=== PATIENT | female | born 1945 | race African-American/Black ===

== ENCOUNTER → 2016-10-09 | Outpatient (CLI) | payer MEDICARE, OTHER ==
[~2016-10-09] MED LIST: BENICAR; CALC-649; COUGH SYRUP; D-ME473S2; MULT1TAB59; NAPR-260 PO; VERA240C10
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
--- NOTE | 2016-10-09 17:44 | RADRPT ---
PROCEDURE: XR Lumbar Spine. CLINICAL INDICATION: Back pain. TECHNIQUE: Three views. AP, lateral and cone-down lateral view of the lumbar spine were obtained. COMPARISON: 02/11/2016. FINDINGS: There is normal stature and alignment of the vertebrae. There is no fracture. There is no lytic or blastic lesion. There are degenerative changes with disk space narrowing and osteophytes at L4-5 and L5-S1. There i s hypertrophy of the facet joints at L3-4, L4-5, and L5-S1. Vascular calcifications are present consistent with atherosclerosis. IMPRESSION: 1. Degenerative changes of the lower lumbar spine. 2. Atherosclerosis. 3. No significant change from 02/11/2016. RPTAT: QQ .Tyson Hernandez MD, MD Date Time Electronically viewed and signed by .Tyson Hernandez MD, on 10/09/2016 17:44 .R/
== END | disposition home or self-care (01) ==
LOC: RAD 13:41
PROVIDERS: ATTEND Family Medicine
DX: M13.812 Other specified arthritis, left shoulder (principal); M54.5 Low back pain
CPT/HCPCS: 72100; 73030

== ENCOUNTER → 2016-12-23 | Outpatient (CLI) | payer MEDICARE, OTHER ==
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
== END | disposition home or self-care (01) ==
LOC: C/S 14:53
PROVIDERS: ATTEND Family Medicine
DX: R63.4 Abnormal weight loss (principal); J43.9 Emphysema, unspecified; I70.0 Atherosclerosis of aorta; K80.80 Other cholelithiasis without obstruction; N63 Unspecified lump in breast; D25.9 Leiomyoma of uterus, unspecified; I89.8 Other specified noninfective disorders of lymphatic vessels and lymph nodes
CPT/HCPCS: 71250; 74176

== ENCOUNTER 2017-02-15 09:56 | Outpatient (CLI) | payer MEDICARE, OTHER ==
[~2017-02-15] VITALS: Ht 163.8 cm; Wt 79.1 kg
[2017-02-15 09:34] VITALS: BP 123/70; PULSE 61; RESP 16; Ht 163.8 cm; Wt 79.1 kg
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
== END 2017-02-15 17:00 | disposition home or self-care (01) ==
LOC: HPC 09:56
PROVIDERS: ATTEND Transplant Surgery
DX: J34.2 Deviated nasal septum (principal); I25.10 Atherosclerotic heart disease of native coronary artery without angina pectoris; D25.9 Leiomyoma of uterus, unspecified; R59.1 Generalized enlarged lymph nodes
CPT/HCPCS: G0463

== ENCOUNTER → 2017-03-03 | Outpatient (CLI) | payer MEDICARE, OTHER ==
[~2017-03-03] MED LIST changes: -BENICAR; -CALC-649; -COUGH SYRUP; -D-ME473S2; +IOHEXOL 300MG/ML 150 ML BTL ONE; -MULT1TAB59; -NAPR-260 PO; +SOD CHLORIDE 0.9% 100 ML ONE
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
== END | disposition home or self-care (01) ==
LOC: C/S 11:22
PROVIDERS: ATTEND Family Medicine
DX: C18.9 Malignant neoplasm of colon, unspecified (principal)
CPT/HCPCS: 71260; 74177; Q9967

== ENCOUNTER → 2017-03-08 | Outpatient (CLI) | payer MEDICARE, OTHER ==
[~2017-03-08] VITALS: Ht 163.8 cm; Wt 79.0 kg
[~2017-03-08] MED LIST changes: -IOHEXOL 300MG/ML 150 ML BTL ONE; -SOD CHLORIDE 0.9% 100 ML ONE
[2017-03-08 09:10] VITALS: BP 156/78; PULSE 63; RESP 18; Ht 163.8 cm; Wt 79.0 kg
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
== END | disposition home or self-care (01) ==
LOC: HPC 09:28
PROVIDERS: ATTEND Transplant Surgery
DX: C18.9 Malignant neoplasm of colon, unspecified (principal); J43.2 Centrilobular emphysema; I89.8 Other specified noninfective disorders of lymphatic vessels and lymph nodes; I70.90 Unspecified atherosclerosis; N63 Unspecified lump in breast; K80.80 Other cholelithiasis without obstruction; D25.9 Leiomyoma of uterus, unspecified; I10 Essential (primary) hypertension; K64.0 First degree hemorrhoids; K57.90 Diverticulosis of intestine, part unspecified, without perforation or abscess without bleeding; I71.2 Thoracic aortic aneurysm, without rupture

== ENCOUNTER → 2017-03-16 | Outpatient (CLI) | payer MEDICARE, OTHER ==
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
== END | disposition home or self-care (01) ==
LOC: RAD 11:00
PROVIDERS: ATTEND Family Medicine
DX: J44.9 Chronic obstructive pulmonary disease, unspecified (principal)
CPT/HCPCS: 71020

== ENCOUNTER 2017-03-22 10:06 | Outpatient (CLI) | payer MEDICARE, OTHER ==
[~2017-03-22] VITALS: Ht 163.8 cm; Wt 79.5 kg
[2017-03-22 09:49] VITALS: BP 131/80; PULSE 70; RESP 18; Ht 163.8 cm; Wt 79.5 kg
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
== END 2017-03-22 17:00 | disposition home or self-care (01) ==
LOC: HPC 10:06
PROVIDERS: ATTEND Transplant Surgery
DX: C18.9 Malignant neoplasm of colon, unspecified (principal); C50.911 Malignant neoplasm of unspecified site of right female breast; J43.9 Emphysema, unspecified; I89.8 Other specified noninfective disorders of lymphatic vessels and lymph nodes; I70.90 Unspecified atherosclerosis
CPT/HCPCS: G0463

== ENCOUNTER 2017-03-30 07:30 | Inpatient (IN) | payer MEDICARE, OTHER ==
[~2017-03-30] VITALS: Ht 162.6 cm; Wt 80.8 kg
[2017-04-02 10:24] LABS: BASOPHIL # 0.1 10^3/ul (0.0-0.1); EOSINOPHILS # 0.1 10^3/ul (0.0-0.5); HEMATOCRIT 35.4 % (37.0-47.0); HEMOGLOBIN 12.4 g/dl (12.0-16.0); LYMPHOCYTES # 1.5 10^3/ul (0.8-2.9); LYMPHOCYTES % 25.2 % (15.0-51.0); MEAN CORPUSCULAR HEMOGLOBIN 28.2 pg (29.0-33.0); MEAN CORPUSCULAR VOLUME 80.6 fl (82.0-101.0); MEAN PLATELET VOLUME 9.2 fl (7.4-10.4); MONOCYTE # 0.4 10^3/ul (0.3-0.9); MONOCYTES % 6.8 % (0.0-11.0); NEUTROPHIL # 3.9 10^3/ul (1.6-7.5); NEUTROPHILS % 64.8 % (39.0-77.0); PLATELET COUNT 383 10^3/UL (140-415); RED BLOOD COUNT 4.39 10^6/ul (4.20-5.40); RED CELL DISTRIBUTION WIDTH 14.5 % (11.5-14.5); WHITE BLOOD COUNT 6.1 10^3/ul (4.8-10.8)
[2017-04-02 10:41] LABS: INR 0.91; PROTIME 12.2 Sec (12.2-14.2)
[2017-04-02 10:42] LABS: PARTIAL THROMBOPLASTIN TIME 28.5 Sec (25.0-35.0)
[2017-04-02 10:48] LABS: ALANINE AMINOTRANSFERASE 33 IU/L (13-69); ALBUMIN 4.2 g/dl (3.3-4.9); ALBUMIN/GLOBULIN RATIO 1.31; ALKALINE PHOSPHATASE 85 IU/L (42-121); ANION GAP 13 (8-16); ASPARTATE AMINO TRANSFERASE 26 IU/L (15-46); BILIRUBIN,INDIRECT 0.3 mg/dl (0-1.1); BILIRUBIN,TOTAL 0.3 mg/dl (0.2-1.3); BLOOD UREA NITROGEN 11 mg/dl (7-20); CALCIUM 9.4 mg/dl (8.4-10.2); CARBON DIOXIDE 28 mmol/L (21-31); CHLORIDE 106 mmol/L (97-110); CHOL/HDL RATIO 2.2 RATIO; CHOLESTEROL 192 mg/dl (100-200); CREATININE 0.74 mg/dl (0.44-1.00); GLUCOSE 77 mg/dl (70-220); HDL CHOLESTEROL 85 mg/dl (33-92); POTASSIUM 4.3 mmol/L (3.5-5.1); SODIUM 143 mmol/L (135-144); TOTAL PROTEIN 7.4 g/dl (6.1-8.1); TRIGLYCERIDES 63 mg/dl (0-149)
[2017-04-02 11:18] LABS: CANCER ANTIGEN 125 9.5 U/ml (0.0-35.0); CARCINOEMBRYONIC ANTIGEN 3.8 ng/ml (0.0-5.0)
[2017-04-02 11:24] LABS: CANCER ANTIGEN 19-9 < 1.4 U/ml (0.0-37.0)
[2017-04-06] VITALS (23 sets, daily range): BP systolic 96–139; BP diastolic 62–85; PULSE 60–82; RESP 13–23; Ht 162.6 cm; Wt 80.8 kg
[2017-04-06] MEDS ORDERED: FENTAnyl 50 MCG/ML VIAL ONE ×2 (06:38→12:09)
[2017-04-06] MEDS ORDERED: LIDOCAINE 2% (SDV) 5 ML INJ ONE (06:38)
[2017-04-06] MEDS ORDERED: ROCURONIUM 50 MG INJ ONE (06:38)
[2017-04-06] MEDS ORDERED: MIDAZOLAM 1 MG/ML 2 ML INJ ONE (06:38)
[2017-04-06] MEDS ORDERED: GLYCOPYRROLATE 0.4 MG INJ ONE (06:38)
[2017-04-06] MEDS ORDERED: PROPOFOL 20 ML ONE (06:38)
[2017-04-06] MEDS ORDERED: NEOSTIGMINE 3 MG/3 ML SYRINGE ONE (06:38)
[2017-04-06] MEDS ORDERED: SUGAMMADEX SODIUM 200 MG/2 ML VIAL IV ONE (06:39)
[2017-04-06] MEDS ORDERED: ONDANSETRON 4 MG INJ ONE (06:39)
[2017-04-06] MEDS ORDERED: DEXAMETHASONE 4 MG/ML 1 ML INJ ONE (06:39)
[2017-04-06 06:47] LABS: BASOPHIL # 0.1 10^3/ul (0.0-0.1); BASOPHILS % 0.8 % (0.0-2.0); EOSINOPHILS # 0.1 10^3/ul (0.0-0.5); EOSINOPHILS % 2.1 % (0.0-7.0); HEMATOCRIT 31.6 % (37.0-47.0); HEMOGLOBIN 11.3 g/dl (12.0-16.0); LYMPHOCYTES % 29.5 % (15.0-51.0); MEAN CORPUSCULAR HEMOGLOBIN 28.4 pg (29.0-33.0); MEAN CORPUSCULAR HGB CONC 35.8 g/dl (32.0-37.0); MEAN CORPUSCULAR VOLUME 79.4 fl (82.0-101.0); MEAN PLATELET VOLUME 9.4 fl (7.4-10.4); MONOCYTE # 0.6 10^3/ul (0.3-0.9); MONOCYTES % 8.3 % (0.0-11.0); NEUTROPHIL # 3.9 10^3/ul (1.6-7.5); NEUTROPHILS % 59.1 % (39.0-77.0); PLATELET COUNT 374 10^3/UL (140-415); RED BLOOD COUNT 3.98 10^6/ul (4.20-5.40); RED CELL DISTRIBUTION WIDTH 14.3 % (11.5-14.5); WHITE BLOOD COUNT 6.6 10^3/ul (4.8-10.8)
[2017-04-06 06:49] LABS: INR 0.91; PROTIME 12.3 Sec (12.2-14.2)
[2017-04-06 06:51] LABS: PARTIAL THROMBOPLASTIN TIME 31.1 Sec (25.0-35.0)
[2017-04-06] MEDS ORDERED: BUPIVACAINE 0.5%/EPI (SDV) 30 ML INJ ONE ×2 (06:52→10:19)
[2017-04-06] MEDS ORDERED: ISOSULFAN BLUE 1% 5 ML INJ SC ONE (06:52)
[2017-04-06 06:56] LABS: ALBUMIN 3.6 g/dl (3.3-4.9); ALBUMIN/GLOBULIN RATIO 1.09; BILIRUBIN,INDIRECT 0.4 mg/dl (0-1.1); BILIRUBIN,TOTAL 0.4 mg/dl (0.2-1.3); TOTAL PROTEIN 6.9 g/dl (6.1-8.1)
[2017-04-06] MEDS ORDERED: morphine SULFATE/PF (10 MG/10 ML) INJ ONE (06:56)
[2017-04-06 07:00] LABS: CALCIUM 9.2 mg/dl (8.4-10.2); CREATININE 0.89 mg/dl (0.44-1.00); POTASSIUM 4.2 mmol/L (3.5-5.1)
[2017-04-06] MEDS ORDERED: MIDAZOLAM 1 MG/ML 2 ML INJ IV PRN (07:00)
[2017-04-06] MEDS ORDERED: OXYCODONE/ACETAMINOPHEN (5/325) TAB PO PRN ×2 (07:00)
[2017-04-06] MEDS ORDERED: HYDROmorphONE (0.2 MG/ML) 10ML SYG IV PRN ×3 (07:00)
[2017-04-06] MEDS ORDERED: FENTAnyl 50 MCG/ML VIAL IV PRN ×2 (07:00)
[2017-04-06] MEDS ORDERED: hydrALAzine 20 MG INJ IV PRN (07:00)
[2017-04-06] MEDS ORDERED: MEPERIDINE 25 MG INJ IV PRN (07:00)
[2017-04-06] MEDS ORDERED: EPHEDrine SULFATE 50 MG/5 ML SYG IV PRN (07:00)
[2017-04-06] MEDS ORDERED: ATROPINE 1 MG/10 ML SYRINGE IV PRN (07:00)
[2017-04-06] MEDS ORDERED: morphine (1 MG/ML) 10ML SYRINGE IV PRN ×3 (07:00)
[2017-04-06] MEDS ORDERED: DIPHENHYDRAMINE 50 MG INJ IV PRN (07:00)
[2017-04-06] MEDS ORDERED: LABETALOL HCL 20MG INJ IV PRN (07:00)
[2017-04-06] MEDS ORDERED: ONDANSETRON 4 MG INJ IV PRN (07:00)
[2017-04-06] MEDS ORDERED: ALBUTEROL/IPRATROPIUM (NEB) 3 ML AMP HHN STA (07:04)
--- NOTE | 2017-04-06 07:21 | HPN ---
Date/Time of Note Date/Time of Note DATE: 04/06/17 TIME: 07:21 Interval H&P Admission Note Pt. seen H&P reviewed: No system changes Pt. seen H&P reviewed. No system changes (I attest that I have seen and examined the patient and reviewed the operation in detail, as well as its risks , benefits and alternatives of the operation). I attest that I have seen and examined the patient and reviewed in detail the operation, and its associated risks, benefits and alternative. I have answered all the patient's questions to the best of my ability and the patient wishes to proceed. Please refer to rest of electronic medical record for additional updates. RUSS MARIN M.D. Apr 06, 2017 07:21
[2017-04-06] MEDS ORDERED: CIPROFLOXACIN 400MG/D5W 200 ML IVPB ONE (07:30)
[2017-04-06] MEDS ORDERED: metroNIDAZOLE 500 MG/NS (PMX) 100 ML IVPB ONE (07:30)
[2017-04-06] MEDS: D5W-0.45 NACL + KCL 20 MEQ 1,000 ML IV SCH ×3 (07:30→18:32)
[2017-04-06] MEDS ORDERED: Metronidazole 500 MG in NS 100 ML IVPB SCH (07:30)
[2017-04-06] MEDS ORDERED: PROPOFOL 100 ML ONE (07:31)
[2017-04-06] MEDS ORDERED: CIPROFLOXACIN 400MG/D5W 400 ML ONE (10:59)
[2017-04-06] MEDS ORDERED: FUROSEMIDE 20 MG INJ ONE (13:50)
[2017-04-06] MEDS ORDERED: HYDROCODONE/APAP (5/325) TAB PO PRN (16:30)
[2017-04-06] MEDS ORDERED: HYDROmorphONE 0.2 MG/ML PCA IV SCH (16:30)
[2017-04-06] MEDS ORDERED: HYDROmorphONE 1 MG/ML SYG IV PRN ×2 (16:30)
[2017-04-06] MEDS ORDERED: DOCUSATE SODIUM 100 MG CAP PO PRN (16:30)
[2017-04-06] MEDS ORDERED: BISACODYL 10 MG SUPP PR PRN (16:30)
[2017-04-06] MEDS ORDERED: NA PHOSPHATE/BIPHOS 133 ML ENEMA PR PRN (16:30)
[2017-04-06 16:49] LABS: ABNORMAL IP MESSAGE 1; BASOPHILS % 0.1 % (0.0-2.0); HEMATOCRIT 34.6 % (37.0-47.0); LYMPHOCYTES # 0.3 10^3/ul (0.8-2.9); LYMPHOCYTES % 2.1 % (15.0-51.0); MEAN CORPUSCULAR HEMOGLOBIN 27.7 pg (29.0-33.0); MEAN CORPUSCULAR HGB CONC 34.7 g/dl (32.0-37.0); MEAN CORPUSCULAR VOLUME 79.9 fl (82.0-101.0); MEAN PLATELET VOLUME 9.3 fl (7.4-10.4); MONOCYTE # 0.5 10^3/ul (0.3-0.9); MONOCYTES % 3.3 % (0.0-11.0); NEUTROPHIL # 14.6 10^3/ul (1.6-7.5); NEUTROPHILS % 94.1 % (39.0-77.0); PLATELET COUNT 351 10^3/UL (140-415); RED BLOOD COUNT 4.33 10^6/ul (4.20-5.40); RED CELL DISTRIBUTION WIDTH 14.4 % (11.5-14.5); WHITE BLOOD COUNT 15.5 10^3/ul (4.8-10.8)
[2017-04-06 16:54] LABS: HOLD TRANSMISSIONS 1; POSITIVE DIFF @See below
[2017-04-06 17:05] LABS: INR 0.98
[2017-04-06 17:06] LABS: PARTIAL THROMBOPLASTIN TIME 26.3 Sec (25.0-35.0)
[2017-04-06 17:10] LABS: ALBUMIN 3.2 g/dl (3.3-4.9); ALBUMIN/GLOBULIN RATIO 1.23; BILIRUBIN,INDIRECT 0.5 mg/dl (0-1.1); BILIRUBIN,TOTAL 0.5 mg/dl (0.2-1.3); TOTAL PROTEIN 5.8 g/dl (6.1-8.1)
[2017-04-06 17:11] LABS: MAGNESIUM 1.2 mg/dl (1.7-2.5); PHOSPHORUS 4.4 mg/dl (2.5-4.9)
[2017-04-06 17:12] LABS: CALCIUM 8.4 mg/dl (8.4-10.2); CREATININE 0.69 mg/dl (0.44-1.00); POTASSIUM 3.7 mmol/L (3.5-5.1)
--- NOTE | 2017-04-06 17:12 | OPR ---
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 middle colic artery that was going to the specimen size circumferentially and then ligated with 1 2-0 silk suture and then transecting the vessel using the LigaSure device. We then archived complete transection across the mesocolon with LigaSure from terminal ileum to the proximal transverse colon while visualizing and ensuring safety of the right ureter. We then circumferentially isolated the distal bowel at the point of isolation in the above-mentioned portion of the mid transverse colon using blunt dissection and then transected across bowel with another firing of the blue load of the hand-held LAILA stapler. 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 We sent the specimen to pathology who reported clear margins on gross inspection. We then performed a standard side to side, functional end to end stapled ileocolic anastomosis with closure of the enterotomy site with running 4-0 PDS suture followed by interrupted 3-0 Silk sutures in a Lembert fashion. We did place a 3- 0 silk suture on the angle of sorrow. We then ensured the mesentery was not twisted, prior to closure of the mesenteric defect with running 3-0 Vicryl suture. We then performed a cholecystectomy by taking the gallbladder top-down using cautery and then isolating both the cystic duct and cystic artery prior to transecting across the cystic artery using the LigaSure device and then transecting across the cystic duct between 3 surgical endoclips placed proximally and one distally and using cold scissors. Gallbladder was also sent to pathology for permanent sections. We then ensured adequate hemostasis and bowel-stasis, removed all our equipment from the abdominal cavity including the pneumoperitoneum prior to dissecting the umbilical sac off of the small umbilical hernia that we had found at the time of entry into the abdominal cavity and sending it to pathology as a last specimen, closing the umbilical fascial defect with running #1 PDS suture, followed by washing the wounds with copious amounts of normal saline and then closing the skin incisions using interrupted 4-0 Monocryl sutures. Light dressing was applied. At the end of the operation, both the sponge count and needle count were reportedly correct x2. The patient tolerated the procedure without any reported complications. EBL: <50 ml Blood Product Transfusion: none to my knowledge Specimen: 1. Right breast lumpectomy (short suture, superior margin; long suture, lateral margin; double suture, deep margin) 2. Right breast re-resection of posterior medial margin (suture gilbert margin of interest closest to the tumor) 3. Right axillary sentinel lymph node biopsy 4. Omental biopsy 5. Right radical hemicolectomy specimen 6. Gallbladder 7. Umbilical hernia sac Complications: none Disposition: PACU Disclaimers: 1. Inadvertent spelling and grammatical errors are likely due to electronic health record (EHR)/dictation software used and do not reflect on the quality of delivered patient care. 2. The electronic timestamp recorded on this note does not necessarily reflect the actual date and time of the visit or the service. 3. Portions of this note may have been created through electronic templates and computer algorithms that might bring in information either from the system or from other physicians and providers. Please note that such information may or may not contain errors, the occurrence of which are outside of my control. In general (but not always) this happens either in the beginning or at the end of the note. The portion of the note that I have created are generally done in 1 continuous block of text, flanked at the beginning and at the end by " ", and entered into one field in the EHR. 4. There may be other unanticipated errors in the note that are outside of my control. I can only attest to the portions of the note that I have created. RUSS MARIN M.D. Apr 06, 2017 17:12
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
[2017-04-06] MEDS ORDERED: NACL 0.9% 3 ML SYG IV SCH (18:00)
[2017-04-07] VITALS: BP 107/64; PULSE 70; RESP 18
[2017-04-07 01:47] VITALS: BP 113/71; RESP 18
[2017-04-07] MEDS: D5W-0.45 NACL + KCL 20 MEQ 1,000 ML IV SCH ×2 (02:13→04:36)
[2017-04-07 05:47] LABS: BASOPHILS % 0.2 % (0.0-2.0); HEMATOCRIT 30.1 % (37.0-47.0); HEMOGLOBIN 10.7 g/dl (12.0-16.0); LYMPHOCYTES # 0.8 10^3/ul (0.8-2.9); LYMPHOCYTES % 4.1 % (15.0-51.0); MEAN CORPUSCULAR HEMOGLOBIN 28.5 pg (29.0-33.0); MEAN CORPUSCULAR HGB CONC 35.5 g/dl (32.0-37.0); MEAN CORPUSCULAR VOLUME 80.1 fl (82.0-101.0); MEAN PLATELET VOLUME 9.4 fl (7.4-10.4); MONOCYTE # 0.7 10^3/ul (0.3-0.9); MONOCYTES % 3.5 % (0.0-11.0); NEUTROPHIL # 17.4 10^3/ul (1.6-7.5); NEUTROPHILS % 91.7 % (39.0-77.0); PLATELET COUNT 333 10^3/UL (140-415); RED BLOOD COUNT 3.76 10^6/ul (4.20-5.40); RED CELL DISTRIBUTION WIDTH 14.4 % (11.5-14.5); WHITE BLOOD COUNT 18.9 10^3/ul (4.8-10.8)
[2017-04-07 05:57] LABS: INR 1.06; PARTIAL THROMBOPLASTIN TIME 29.1 Sec (25.0-35.0); PROTIME 13.8 Sec (12.2-14.2); PT RATIO 1.1
[2017-04-07 06:31] LABS: ALBUMIN 2.8 g/dl (3.3-4.9); BILIRUBIN,INDIRECT 0.7 mg/dl (0-1.1); BILIRUBIN,TOTAL 0.7 mg/dl (0.2-1.3); CALCIUM 8.7 mg/dl (8.4-10.2); CREATININE 0.97 mg/dl (0.44-1.00); MAGNESIUM 1.3 mg/dl (1.7-2.5); PHOSPHORUS 3.8 mg/dl (2.5-4.9); POTASSIUM 4.5 mmol/L (3.5-5.1); TOTAL PROTEIN 5.6 g/dl (6.1-8.1)
[2017-04-07 08:02] VITALS: BP 109/70; RESP 18
[2017-04-07] MEDS: VERAPAMIL (SR) 240 MG TAB PO SCH (08:53)
[2017-04-07] MEDS: ENOXAPARIN 40 MG/0.4 ML SYG SC SCH (08:53)
[2017-04-07] MEDS ORDERED: FAMOTIDINE 20 MG INJ IV SCH (09:00)
--- NOTE | 2017-04-07 13:45 | PN ---
Date/Time of Note Date/Time of Note DATE: 04/07/17 TIME: 13:45 Assessment/Plan VTE Prophylaxis VTE Prophylaxis Intervention: LMWH Lines/Catheters IV Catheter Type (from Nrs): Peripheral IV Assessment/Plan Chief Complaint/Hosp Course Patient is a 71-year-old female with a past medical history significant for denial for colon cancer, and an oval triple negative breast cancer who presented to [facility] for elective surgical removal. Assessment and plan Colon cancer, status post right hemicolectomy Triple negative breast cancer, status post right lumpectomy and lymph node dissection Cholecystectomy Abdominal hernia repair [place] emphysema Hypertension Atherosclerosis -Consulted by general surgery -Monitor closely, restart home meds when able -Restart diet -No antibiotics per general surgery -DC when okay with general surgery Problems: Subjective 24 Hr Interval Summary Free Text/Dictation no acute change Exam/Review of Systems Vital Signs Vitals Vital Signs Date Time Temp Pulse Resp B/P Pulse Ox O2 Delivery O2 Flow Rate FiO2 04/07/17 10:10 18 04/07/17 08:02 98.2 89 109/70 94 04/07/17 00:00 Room Air Intake and Output 04/06/17 04/06/17 04/07/17 15:00 23:00 07:00 Intake Total 4100 ml 3200 ml Output Total 750 ml 1650 ml Balance 3350 ml 1550 ml Exam Physical exam General: Patient is laying in bed and answers questions appropriately Mentation: Patient is alert and oriented 4, but mildly sedated Head: Normocephalic atraumatic Eyes: EOMI, pupils reactive to light Neck: Supple, nontender, midline Respiratory: Clear to auscultation bilaterally Cardiovascular: regular rate, no obvious murmurs Gastrointestinal: mildly tender to palpation, bowel sounds heard. incision sites CDI Neurological: Moves all extremities spontaneously Skin: No new skin lesions Results Result Diagram: 04/07/17 0520 04/07/17 0520 Results 24 hrs Laboratory Tests Test 04/06/17 16:37 04/07/17 05:20 White Blood Count 15.5 #H 18.9 #H Red Blood Count 4.33 3.76 L Hemoglobin 12.0 10.7 L Hematocrit 34.6 L 30.1 L Mean Corpuscular Volume 79.9 L 80.1 L Mean Corpuscular Hemoglobin 27.7 L 28.5 L Mean Corpuscular Hemoglobin Concent 34.7 35.5 Red Cell Distribution Width 14.4 14.4 Platelet Count 351 333 Mean Platelet Volume 9.3 9.4 Neutrophils % 94.1 H 91.7 H Lymphocytes % 2.1 L 4.1 L Monocytes % 3.3 3.5 Eosinophils % 0.0 0.0 Basophils % 0.1 0.2 Nucleated Red Blood Cells % 0.0 0.0 Neutrophils # 14.6 H 17.4 H Lymphocytes # 0.3 L 0.8 Monocytes # 0.5 0.7 Eosinophils # 0.0 0.0 Basophils # 0.0 0.0 Nucleated Red Blood Cells # 0.0 0.0 CBC Results Faxed/Phoned 1 *H Prothrombin Time 13.0 13.8 Prothrombin Time Ratio 1.0 1.1 INR International Normalized Ratio 0.98 1.06 Activated Partial Thromboplast Time 26.3 29.1 Sodium Level 136 135 Potassium Level 3.7 4.5 Chloride Level 106 102 Carbon Dioxide Level 23 30 Anion Gap 11 8 Blood Urea Nitrogen 12 12 Creatinine 0.69 0.97 Glucose Level 170 135 Lactic Acid Level 1.9 2.0 Calcium Level 8.4 8.7 Phosphorus Level 4.4 3.8 Magnesium Level 1.2 L 1.3 L Total Bilirubin 0.5 0.7 Direct Bilirubin 0.00 0.00 Indirect Bilirubin 0.5 0.7 Aspartate Amino Transf (AST/SGOT) 74 H 43 Alanine Aminotransferase (ALT/SGPT) 66 49 Alkaline Phosphatase 78 61 Total Protein 5.8 #L 5.6 L Albumin 3.2 L 2.8 L Globulin 2.60 2.80 Albumin/Globulin Ratio 1.23 1.00 B-Type Natriuretic Peptide 439 H Medications Medications Current Medications Acetaminophen/ Hydrocodone Bitart ([place] (5/325)) 1 tab Q4H PRN PO PAIN LEVEL 4 -7; Start 04/06/17 at 16:30 Acetaminophen/ Hydrocodone Bitart ([place] (5/325)) 2 tab Q4H PRN PO PAIN LEVEL 7 -10; Start 04/06/17 at 16:30 Hydromorphone HCl (Dilaudid) 0.5 mg Q2 PRN IV PAIN; Start 04/06/17 at 16:30 Hydromorphone HCl (Dilaudid) 1 mg Q2 PRN IV PAIN; Start 04/06/17 at 16:30 Docusate Sodium (Colace) 100 mg BID PRN PO CONSTIPATION; Start 04/06/17 at 16: 30 Bisacodyl (Dulcolax Supp) 10 mg BID PRN [place] CONSTIPATION; Start 04/06/17 at 16: 30 Sodium Biphosphate/ Sodium Phosphate (Fleet Enema) 133 ml BID PRN [place] CONSTIPATION; Start 04/06/17 at 16:30 Famotidine (Pepcid Iv) 20 mg DAILY IV Last administered on 04/07/17 08:36; Admin Dose 20 MG; Start 04/07/17 at 09:00 Enoxaparin Sodium (Lovenox) 40 mg DAILY SC Last administered on 04/07/17 08: 53; Admin Dose 40 MG; Start 04/07/17 at 09:00 Verapamil HCl (Isoptin Sr) 240 mg DAILY PO ; Start 04/07/17 at 09:00 JASON OCASIO Apr 07, 2017 13:45
[2017-04-07] MEDS ORDERED: MAGNESIUM SULFATE 2 GM/50 ML 50 ML IVPB ONE (14:30)
[2017-04-07 15:25] VITALS: BP 126/72; RESP 20
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
[2017-04-07 19:51] VITALS: BP 139/68; RESP 18
[2017-04-07] MEDS: FAMOTIDINE 20 MG TAB PO SCH ×2 (21:00→21:22)
[2017-04-07] MEDS: HYDROCODONE/APAP (5/325) TAB PO PRN (22:17)
[2017-04-08 02:00] VITALS: BP 159/99; RESP 20
[2017-04-08 07:31] VITALS: BP 155/91; RESP 18
[2017-04-08] MEDS: VERAPAMIL (SR) 240 MG TAB PO SCH (07:40)
[2017-04-08] MEDS: ENOXAPARIN 40 MG/0.4 ML SYG SC SCH (07:43)
[2017-04-08] MEDS: HYDROCODONE/APAP (5/325) TAB PO PRN ×2 (07:56→22:47)
[2017-04-08 10:42] LABS: BASOPHILS % 0.3 % (0.0-2.0); EOSINOPHILS % 0.2 % (0.0-7.0); HEMATOCRIT 30.5 % (37.0-47.0); HEMOGLOBIN 10.5 g/dl (12.0-16.0); LYMPHOCYTES # 1.1 10^3/ul (0.8-2.9); LYMPHOCYTES % 8.3 % (15.0-51.0); MEAN CORPUSCULAR HEMOGLOBIN 27.5 pg (29.0-33.0); MEAN CORPUSCULAR HGB CONC 34.4 g/dl (32.0-37.0); MEAN CORPUSCULAR VOLUME 79.8 fl (82.0-101.0); MEAN PLATELET VOLUME 9.6 fl (7.4-10.4); MONOCYTE # 0.5 10^3/ul (0.3-0.9); MONOCYTES % 3.8 % (0.0-11.0); NEUTROPHILS % 86.7 % (39.0-77.0); PLATELET COUNT 322 10^3/UL (140-415); RED BLOOD COUNT 3.82 10^6/ul (4.20-5.40); RED CELL DISTRIBUTION WIDTH 14.6 % (11.5-14.5); WHITE BLOOD COUNT 12.7 10^3/ul (4.8-10.8)
[2017-04-08 11:14] LABS: INR 0.98
[2017-04-08 11:16] LABS: ALBUMIN 3.1 g/dl (3.3-4.9); ALBUMIN/GLOBULIN RATIO 1.1; BILIRUBIN,INDIRECT 0.6 mg/dl (0-1.1); BILIRUBIN,TOTAL 0.6 mg/dl (0.2-1.3); CALCIUM 8.6 mg/dl (8.4-10.2); CREATININE 0.85 mg/dl (0.44-1.00); TOTAL PROTEIN 5.9 g/dl (6.1-8.1)
[2017-04-08 11:17] LABS: MAGNESIUM 1.8 mg/dl (1.7-2.5); PHOSPHORUS 3.8 mg/dl (2.5-4.9)
[2017-04-08] MEDS ORDERED: HYDROmorphONE 0.5 MG/0.5 ML SYG IV PRN (11:30)
--- NOTE | 2017-04-08 13:11 | PN ---
Date/Time of Note Date/Time of Note DATE: 04/08/17 TIME: 13:10 Assessment/Plan VTE Prophylaxis VTE Prophylaxis Intervention: LMWH Lines/Catheters IV Catheter Type (from Nrs): Peripheral IV Assessment/Plan Chief Complaint/Hosp Course Patient is a 71-year-old female with a past medical history significant for denial for colon cancer, and an oval triple negative breast cancer who presented to [facility] for elective surgical removal. Assessment and plan Colon cancer, status post right hemicolectomy Triple negative breast cancer, status post right lumpectomy and lymph node dissection Cholecystectomy Abdominal hernia repair [place] emphysema Hypertension Atherosclerosis -Consulted by general surgery -Monitor closely, restart home meds -Restart diet -No antibiotics per general surgery -DC when okay with general surgery Problems: Subjective 24 Hr Interval Summary Free Text/Dictation patient doing well, no acute complaints Exam/Review of Systems Vital Signs Vitals Vital Signs Date Time Temp Pulse Resp B/P Pulse Ox O2 Delivery O2 Flow Rate FiO2 04/08/17 07:31 98.3 89 18 155/91 95 04/07/17 00:00 Room Air Intake and Output 04/07/17 04/07/17 04/08/17 15:00 23:00 07:00 Intake Total 400 ml 1370 ml 480 ml Balance 400 ml 1370 ml 480 ml Exam Physical exam General: Patient is laying in bed and answers questions appropriately Mentation: Patient is alert and oriented 4, Head: Normocephalic atraumatic Eyes: EOMI, pupils reactive to light Neck: Supple, nontender, midline Respiratory: Clear to auscultation bilaterally Cardiovascular: regular rate, no obvious murmurs Gastrointestinal: mildly tender to palpation, bowel sounds heard. incision sites CDI Neurological: Moves all extremities spontaneously Skin: No new skin lesions Results Result Diagram: 04/08/17 1003 04/08/17 1003 Results 24 hrs Laboratory Tests Test 04/08/17 10:03 White Blood Count 12.7 #H Red Blood Count 3.82 L Hemoglobin 10.5 L Hematocrit 30.5 L Mean Corpuscular Volume 79.8 L Mean Corpuscular Hemoglobin 27.5 L Mean Corpuscular Hemoglobin Concent 34.4 Red Cell Distribution Width 14.6 H Platelet Count 322 Mean Platelet Volume 9.6 Neutrophils % 86.7 H Lymphocytes % 8.3 L Monocytes % 3.8 Eosinophils % 0.2 Basophils % 0.3 Nucleated Red Blood Cells % 0.0 Neutrophils # 11.0 H Lymphocytes # 1.1 Monocytes # 0.5 Eosinophils # 0.0 Basophils # 0.0 Nucleated Red Blood Cells # 0.0 Prothrombin Time 13.0 Prothrombin Time Ratio 1.0 INR International Normalized Ratio 0.98 Activated Partial Thromboplast Time 34.0 Sodium Level 138 Potassium Level 4.0 Chloride Level 105 Carbon Dioxide Level 28 Anion Gap 9 Blood Urea Nitrogen 9 Creatinine 0.85 Glucose Level 110 Calcium Level 8.6 Phosphorus Level 3.8 Magnesium Level 1.8 Total Bilirubin 0.6 Direct Bilirubin 0.00 Indirect Bilirubin 0.6 Aspartate Amino Transf (AST/SGOT) 58 H Alanine Aminotransferase (ALT/SGPT) 42 Alkaline Phosphatase 87 Total Protein 5.9 L Albumin 3.1 L Globulin 2.80 Albumin/Globulin Ratio 1.10 Medications Medications Current Medications Acetaminophen/ Hydrocodone Bitart ([place] (5/325)) 1 tab Q4H PRN PO PAIN LEVEL 4 -7; Start 04/06/17 at 16:30 Acetaminophen/ Hydrocodone Bitart ([place] (5/325)) 2 tab Q4H PRN PO PAIN LEVEL 7 -10 Last administered on 04/08/17 07:56; Admin Dose 2 TAB; Start 04/06/17 at 16:30 Hydromorphone HCl (Dilaudid) 1 mg Q2 PRN IV PAIN; Start 04/06/17 at 16:30 Docusate Sodium (Colace) 100 mg BID PRN PO CONSTIPATION; Start 04/06/17 at 16: 30 Bisacodyl (Dulcolax Supp) 10 mg BID PRN [place] CONSTIPATION; Start 04/06/17 at 16: 30 Sodium Biphosphate/ Sodium Phosphate (Fleet Enema) 133 ml BID PRN [place] CONSTIPATION; Start 04/06/17 at 16:30 Enoxaparin Sodium (Lovenox) 40 mg DAILY SC Last administered on 04/08/17 07: 43; Admin Dose 40 MG; Start 04/07/17 at 09:00 Verapamil HCl (Isoptin Sr) 240 mg DAILY PO Last administered on 04/08/17 07: 40; Admin Dose 240 MG; Start 04/07/17 at 09:00 Famotidine (Pepcid) 40 mg HS PO Last administered on 04/07/17 21:22; Admin Dose 40 MG; Start 04/07/17 at 21:00 Hydromorphone HCl (Dilaudid) 0.5 mg Q2H PRN IV PAIN; Start 04/08/17 at 11:30 JASON OCASIO Apr 08, 2017 13:11
[2017-04-08 14:25] VITALS: BP 146/75; RESP 18
[2017-04-08 14:28] VITALS: BP 110/36; RESP 18
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
[2017-04-08] MEDS ORDERED: ALBU18HF INHALATION (16:10)
[2017-04-08] MEDS ORDERED: ALBUTEROL 18 GM INHALER INH PRN (17:30)
[2017-04-08 20:01] VITALS: BP 160/91; RESP 20
[2017-04-08] MEDS: FAMOTIDINE 20 MG TAB PO SCH (20:16)
[2017-04-08] MEDS: hydrALAzine 20 MG INJ IV PRN (20:16)
[2017-04-08 21:02] VITALS: BP 140/84
[2017-04-09 01:52] VITALS: BP 159/91; RESP 20
[2017-04-09 05:46] LABS: BASOPHILS % 0.4 % (0.0-2.0); EOSINOPHILS # 0.1 10^3/ul (0.0-0.5); EOSINOPHILS % 1.4 % (0.0-7.0); HEMATOCRIT 29.7 % (37.0-47.0); HEMOGLOBIN 10.5 g/dl (12.0-16.0); LYMPHOCYTES # 1.1 10^3/ul (0.8-2.9); LYMPHOCYTES % 13.2 % (15.0-51.0); MEAN CORPUSCULAR HEMOGLOBIN 28.1 pg (29.0-33.0); MEAN CORPUSCULAR HGB CONC 35.4 g/dl (32.0-37.0); MEAN CORPUSCULAR VOLUME 79.4 fl (82.0-101.0); MEAN PLATELET VOLUME 9.5 fl (7.4-10.4); MONOCYTE # 0.4 10^3/ul (0.3-0.9); MONOCYTES % 4.5 % (0.0-11.0); NEUTROPHIL # 6.4 10^3/ul (1.6-7.5); PLATELET COUNT 312 10^3/UL (140-415); RED BLOOD COUNT 3.74 10^6/ul (4.20-5.40); RED CELL DISTRIBUTION WIDTH 14.1 % (11.5-14.5)
[2017-04-09 06:23] LABS: CALCIUM 9.1 mg/dl (8.4-10.2); CREATININE 0.69 mg/dl (0.44-1.00); MAGNESIUM 1.7 mg/dl (1.7-2.5); POTASSIUM 3.9 mmol/L (3.5-5.1)
[2017-04-09 07:40] VITALS: BP 162/97; RESP 20
[2017-04-09] MEDS: VERAPAMIL (SR) 240 MG TAB PO SCH (08:36)
[2017-04-09] MEDS: ENOXAPARIN 40 MG/0.4 ML SYG SC SCH (08:46)
--- NOTE | 2017-04-09 09:07 | PDOCDIS ---
Discharge Instructions CONDITION Patient Condition: Good HOME CARE INSTRUCTIONS: Diet Instructions: RegularSpecial Diet: regular ACTIVITY: Activity Restrictions: Avoid heavy lifting Bathing Restrictions: Shower FOLLOW UP/APPOINTMENTS Follow-up Plan [address] Marin OTHER ORDERS: Other Orders: Please call [phone] if any of fever, nausea, vomiting, discharge from wound , wound redness, increase or sudden pain, blood in stool or vomit, or any other unusual signs or symptoms. Also, please call the same number in a few days to schedule an appointment for your follow up visit. Patient may remove dressings tomorrow. Showers OK starting tomorrow. No swimming , hot tub or bath for 2 weeks. No lifting more than 25 lbs for 8 weeks. RUSS MARIN M.D. Apr 09, 2017 09:07
[2017-04-09] MEDS ORDERED: HYDR-3498 PO (09:08)
[2017-04-09] MEDS: HYDROCODONE/APAP (5/325) TAB PO PRN ×2 (09:24→17:42)
[2017-04-09] MEDS: LISINOPRIL 10 MG TAB PO SCH (10:43)
[2017-04-09 14:17] VITALS: BP 125/79; RESP 20
--- NOTE | 2017-04-09 14:24 | PN ---
Date/Time of Note Date/Time of Note DATE: 04/09/17 TIME: 14:24 Assessment/Plan VTE Prophylaxis VTE Prophylaxis Intervention: LMWH Lines/Catheters IV Catheter Type (from Nrs): Peripheral IV Assessment/Plan Chief Complaint/Hosp Course Patient is a 71-year-old female with a past medical history significant for denial for colon cancer, and an oval triple negative breast cancer who presented to [facility] for elective surgical removal. Assessment and plan Colon cancer, status post right hemicolectomy Triple negative breast cancer, status post right lumpectomy and lymph node dissection Cholecystectomy Abdominal hernia repair [place] emphysema Hypertension Atherosclerosis -starting lisinopril for BP, monitor -Consulted by general surgery -Monitor closely, restart home meds -Restart diet -No antibiotics per general surgery -DC when okay with general surgery Problems: Subjective 24 Hr Interval Summary Free Text/Dictation patient feels well, but is worried about her blood pressure Exam/Review of Systems Vital Signs Vitals Vital Signs Date Time Temp Pulse Resp B/P Pulse Ox O2 Delivery O2 Flow Rate FiO2 04/09/17 14:17 98.3 69 20 125/79 98 04/07/17 00:00 Room Air Intake and Output 04/08/17 04/08/17 04/09/17 15:00 23:00 07:00 Intake Total 1080 ml Balance 1080 ml Exam Physical exam General: Patient is laying in bed and answers questions appropriately Mentation: Patient is alert and oriented 4, Head: Normocephalic atraumatic Eyes: EOMI, pupils reactive to light Neck: Supple, nontender, midline Respiratory: Clear to auscultation bilaterally Cardiovascular: regular rate, no obvious murmurs Gastrointestinal: mildly tender to palpation, bowel sounds heard. incision sites CDI Neurological: Moves all extremities spontaneously Skin: No new skin lesions Results Result Diagram: 04/09/1714 04/09/1714 Results 24 hrs Laboratory Tests Test 04/09/17 05:14 White Blood Count 8.0 # Red Blood Count 3.74 L Hemoglobin 10.5 L Hematocrit 29.7 L Mean Corpuscular Volume 79.4 L Mean Corpuscular Hemoglobin 28.1 L Mean Corpuscular Hemoglobin Concent 35.4 Red Cell Distribution Width 14.1 Platelet Count 312 Mean Platelet Volume 9.5 Neutrophils % 80.0 H Lymphocytes % 13.2 L Monocytes % 4.5 Eosinophils % 1.4 Basophils % 0.4 Nucleated Red Blood Cells % 0.0 Neutrophils # 6.4 Lymphocytes # 1.1 Monocytes # 0.4 Eosinophils # 0.1 Basophils # 0.0 Nucleated Red Blood Cells # 0.0 Sodium Level 136 Potassium Level 3.9 Chloride Level 103 Carbon Dioxide Level 29 Anion Gap 8 Blood Urea Nitrogen 5 L Creatinine 0.69 Glucose Level 97 Calcium Level 9.1 Phosphorus Level 4.0 Magnesium Level 1.7 Medications Medications Current Medications Acetaminophen/ Hydrocodone Bitart ([place] (5/325)) 1 tab Q4H PRN PO PAIN LEVEL 4 -7; Start 04/06/17 at 16:30 Acetaminophen/ Hydrocodone Bitart ([place] (5/325)) 2 tab Q4H PRN PO PAIN LEVEL 7 -10 Last administered on 04/09/17 09:24; Admin Dose 2 TAB; Start 04/06/17 at 16:30 Hydromorphone HCl (Dilaudid) 1 mg Q2 PRN IV PAIN; Start 04/06/17 at 16:30 Docusate Sodium (Colace) 100 mg BID PRN PO CONSTIPATION; Start 04/06/17 at 16: 30 Bisacodyl (Dulcolax Supp) 10 mg BID PRN [place] CONSTIPATION Last administered on 16:04; Admin Dose 10 MG; Start 04/06/17 at 16:30 Sodium Biphosphate/ Sodium Phosphate (Fleet Enema) 133 ml BID PRN [place] CONSTIPATION Last administered on 04/09/17 05:25; Admin Dose 133 ML; Start at 16:30 Enoxaparin Sodium (Lovenox) 40 mg DAILY SC Last administered on 04/09/17 08: 46; Admin Dose 40 MG; Start 04/07/17 at 09:00 Verapamil HCl (Isoptin Sr) 240 mg DAILY PO Last administered on 04/09/17 08: 36; Admin Dose 240 MG; Start 04/07/17 at 09:00 Famotidine (Pepcid) 40 mg HS PO Last administered on 04/08/17 20:16; Admin Dose 40 MG; Start 04/07/17 at 21:00 Hydromorphone HCl (Dilaudid) 0.5 mg Q2H PRN IV PAIN; Start 04/08/17 at 11:30 Hydralazine HCl (Apresoline) 10 mg Q4H PRN IV htn Last administered on 20:16; Admin Dose 10 MG; Start 04/08/17 at 20:30 Lisinopril (Zestril) 10 mg DAILY PO Last administered on 04/09/17 10:43; Admin Dose 10 MG; Start 04/09/17 at 10:30 JASON OCASIO Apr 09, 2017 14:24
[2017-04-09 17:06] VITALS: BP 131/80; PULSE 70; RESP 18
[2017-04-09] MEDS: FAMOTIDINE 20 MG TAB PO SCH (20:37)
[2017-04-09 20:38] VITALS: BP 159/88; PULSE 72; RESP 18
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
[2017-04-10] MEDS: hydrALAzine 20 MG INJ IV PRN (02:56)
[2017-04-10 03:06] VITALS: BP 174/96; PULSE 79; RESP 18
[2017-04-10 03:24] VITALS: BP 162/89; PULSE 77; RESP 18
[2017-04-10 03:59] VITALS: BP 136/84; PULSE 77; RESP 18
[2017-04-10 07:02] LABS: CALCIUM 9.1 mg/dl (8.4-10.2); CREATININE 0.72 mg/dl (0.44-1.00); MAGNESIUM 1.7 mg/dl (1.7-2.5); PHOSPHORUS 4.4 mg/dl (2.5-4.9); POTASSIUM 3.4 mmol/L (3.5-5.1)
[2017-04-10 08:02] VITALS: BP 142/97; RESP 20
[2017-04-10] MEDS: VERAPAMIL (SR) 240 MG TAB PO SCH (08:28)
[2017-04-10] MEDS: LISINOPRIL 10 MG TAB PO SCH (08:28)
[2017-04-10] MEDS: ENOXAPARIN 40 MG/0.4 ML SYG SC SCH (08:37)
[2017-04-10] MEDS ORDERED: FAMOTIDINE 20 MG INJ IV SCH (09:30)
[2017-04-10] MEDS ORDERED: LISI20TA11 PO (10:29)
[2017-04-10] MEDS ORDERED: POTASSIUM CHLORIDE 20 MEQ POWDER FOR ORAL SOLN PO ONE (10:30)
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
--- NOTE | 2017-04-10 13:46 | PN ---
Date/Time of Note Date/Time of Note DATE: 04/10/17 TIME: 13:44 Assessment/Plan VTE Prophylaxis VTE Prophylaxis Intervention: LMWH Lines/Catheters IV Catheter Type (from Nrs): Mid Line Urinary Cath still in place: No Assessment/Plan Chief Complaint/Hosp Course Patient is a 71-year-old female with a past medical history significant for denial for colon cancer, and an oval triple negative breast cancer who presented to [facility] for elective surgical removal. Assessment and plan Colon cancer, status post right hemicolectomy Triple negative breast cancer, status post right lumpectomy and lymph node dissection Cholecystectomy Abdominal hernia repair [place] emphysema Hypertension Atherosclerosis -will DC today, BP still mildly elevated, will dc with lisinopril -Consulted by general surgery -continue diet -No antibiotics per general surgery -DC when okay with general surgery Problems: Subjective 24 Hr Interval Summary Free Text/Dictation no acute issues Exam/Review of Systems Vital Signs Vitals Vital Signs Date Time Temp Pulse Resp B/P Pulse Ox O2 Delivery O2 Flow Rate FiO2 04/10/17 08:02 98.9 94 20 142/97 97 04/10/17 03:59 Room Air Intake and Output 04/09/17 04/09/17 04/10/17 15:00 23:00 07:00 Intake Total 1320 ml 240 ml Balance 1320 ml 240 ml Exam Physical exam General: Patient is laying in bed and answers questions appropriately Mentation: Patient is alert and oriented 4, Head: Normocephalic atraumatic Eyes: EOMI, pupils reactive to light Neck: Supple, nontender, midline Respiratory: Clear to auscultation bilaterally Cardiovascular: regular rate, no obvious murmurs Gastrointestinal: mildly tender to palpation, bowel sounds heard. incision sites CDI Neurological: Moves all extremities spontaneously Skin: No new skin lesions Results Result Diagram: 04/09/17 0514 04/10/17 0517 Results 24 hrs Laboratory Tests Test 04/10/17 05:17 Sodium Level 131 L Potassium Level 3.4 L Chloride Level 103 Carbon Dioxide Level 27 Anion Gap 4 L Blood Urea Nitrogen 6 L Creatinine 0.72 Glucose Level 96 Calcium Level 9.1 Phosphorus Level 4.4 Magnesium Level 1.7 JASON OCASIO Apr 10, 2017 13:46
== END 2017-04-10 12:55 | disposition home or self-care (01) | DRG 330 ==
LOC: REC 04-06 05:51 → MS2 04-06 17:45
PROVIDERS: ADMIT Transplant Surgery; ATTEND Transplant Surgery
PROC: 0HBT0ZZ Excision of Right Breast, Open Approach (ICD-10-PCS; 2017-04-06)
PROC: 07B50ZX Excision of Right Axillary Lymphatic, Open Approach, Diagnostic (ICD-10-PCS; 2017-04-06)
PROC: 0FT40ZZ Resection of Gallbladder, Open Approach (ICD-10-PCS; 2017-04-06)
PROC: 0WQF0ZZ Repair Abdominal Wall, Open Approach (ICD-10-PCS; 2017-04-06)
PROC: 0DTF0ZZ Resection of Right Large Intestine, Open Approach (ICD-10-PCS; principal; 2017-04-06 07:30)
PROC: 0DBU0ZX Excision of Omentum, Open Approach, Diagnostic (ICD-10-PCS; 2017-04-06 07:30)
DX: C18.0 Malignant neoplasm of cecum (principal); C78.6 Secondary malignant neoplasm of retroperitoneum and peritoneum; I71.2 Thoracic aortic aneurysm, without rupture; C50.811 Malignant neoplasm of overlapping sites of right female breast; Z17.1 Estrogen receptor negative status [ER-]; J43.2 Centrilobular emphysema; I70.90 Unspecified atherosclerosis; K80.80 Other cholelithiasis without obstruction; D25.9 Leiomyoma of uterus, unspecified; I10 Essential (primary) hypertension; K57.30 Diverticulosis of large intestine without perforation or abscess without bleeding; J45.909 Unspecified asthma, uncomplicated; F17.210 Nicotine dependence, cigarettes, uncomplicated
CPT/HCPCS: 80048; 80053; 80061; 82105; 82378; 83605; 83735; 83880; 84100; 85025; 85610; 85730; 86300; 86301; 86304; 86850; 86900; 86901; 87086; 88302; 88304; 88305; 88307; 88342; J1940; J0360; J0744; J1100; J1170; J1644; J1650; J2250; J2274; J2405; J2710; J3010; J3475; J3480; Q9968

== ENCOUNTER 2017-04-19 11:57 | Outpatient (CLI) | payer MEDICARE, OTHER ==
[~2017-04-19] VITALS: Ht 163.8 cm; Wt 77.0 kg
[2017-04-19 11:46] VITALS: BP 134/74; PULSE 78; RESP 18; Ht 163.8 cm; Wt 77.0 kg
[~2017-04-19 11:57] MED LIST changes: +ALBU18HF INHALATION; +HYDR-3498 PO; +LISI20TA11 PO
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
== END 2017-04-19 17:00 | disposition home or self-care (01) ==
LOC: HPC 11:57
PROVIDERS: ATTEND Transplant Surgery
DX: Z48.3 Aftercare following surgery for neoplasm (principal); C50.811 Malignant neoplasm of overlapping sites of right female breast; C78.5 Secondary malignant neoplasm of large intestine and rectum; Z17.1 Estrogen receptor negative status [ER-]
CPT/HCPCS: G0463